=== PATIENT | female | born 1985 | race Caucasian/White ===

== ENCOUNTER 2020-04-24 18:29 | Emergency (ER) | payer SELFPAY ==
[2020-04-24] MEDS ORDERED: cefTRIAXone\\ROCEPHIN 500 MG VIAL ONE (19:52)
[2020-04-24] MEDS ORDERED: Dexamethasone 4 mg/ml Vial ONE (19:52)
[2020-04-24] MEDS ORDERED: Ketorolac Tromethamine 30 MG/ML VIAL ONE (19:52)
[2020-04-24] MEDS ORDERED: Lidocaine 1% PF 5 ML VIAL ONE (19:54)
[2020-04-25 08:43] LABS: SARS-CoV-2 MS2 Positive; SARS-CoV-2 N Gene Negative; SARS-CoV-2 S Gene Negative; SARS-CoV-2 by NAA Not Detected (NotDetected); SARS-CoV-2 orf1ab Negative
== END 2020-04-24 20:22 | disposition home or self-care (01) ==
LOC: ERS 18:29
DX: J02.9 Acute pharyngitis, unspecified (principal); L03.211 Cellulitis of face; R53.83 Other fatigue; F17.210 Nicotine dependence, cigarettes, uncomplicated; Z85.41 Personal history of malignant neoplasm of cervix uteri
CPT/HCPCS: 87635; 96372; 99283; J0696; J1100; J1885; U0003

== ENCOUNTER 2021-02-03 18:48 | Emergency (ER) | payer SELFPAY ==
[2021-02-04 18:41] LABS: SARS-CoV-2 PCR by NAA DETECTED (NotDetected)
== END 2021-02-03 21:45 | disposition home or self-care (01) ==
LOC: ERS 18:48
DX: U07.1 COVID-19 (principal); F17.210 Nicotine dependence, cigarettes, uncomplicated
CPT/HCPCS: 99283; U0003; U0005

== ENCOUNTER 2022-03-02 03:52 | Emergency (ER) | payer SELFPAY ==
[2022-03-02] MEDS ORDERED: Ondansetron PF 4 MG/2 ML Vial ONE (06:46)
[2022-03-02] MEDS ORDERED: Acetaminophen 500 MG TAB ONE (06:46)
[2022-03-02] MEDS ORDERED: Ketorolac Tromethamine 30 MG/ML VIAL ONE (06:46)
[2022-03-02 07:06] LABS: #Basophils 0.1 thou/uL (0.0-0.2); #Eosinphils 0.4 thou/uL (0.0-0.7); #Lymphocytes 3.5 thou/uL (1.20-3.40); #Monocytes 0.5 thou/uL (0.11-0.59); %Basophils 1.3 % (0.0-1.0); %Eosinophils 4.8 % (0.0-10.0); %Lymphocytes 47.4 % (21.0-51.0); %Monocytes 6.7 % (0.0-10.0); %Neutrophils 39.9 % (42.0-75.0); Hemoglobin 14.5 g/dL (12.0-16.0); Mean Corpuscular Hemoglobin 32.3 pg (27.0-31.0); Mean Corpuscular Volume 97.9 fL (78.0-98.0); Mean Platelet Volume 7.6 fL (7.4-10.4); Platelet Count 218 thou/uL (130-400); RBC Distribution Width 12.8 % (11.5-14.5); White Blood Cell (WBC) Count 7.4 thou/uL (4.8-10.8)
[2022-03-02 07:26] LABS: ALT (SGPT) 10 U/L (8-55); AST (SGOT) 10 U/L (5-34); Alkaline Phosphatase 52 U/L (40-110); Anion Gap 9 mmol/L (10-20); BUN (Urea Nitrogen) 10 mg/dL (7.0-18.7); Bilirubin, Total 0.5 mg/dL (0.2-1.2); Calc. Creatinine Clearance 0 mL/min (70-130); Calcium 9.3 mg/dL (7.8-10.44); Carbon Dioxide 24 mmol/L (22-29); Chloride 108 mmol/L (98-107); Estimated GFR 92; Globulin 3.1 g/dL (2.4-3.5); Glucose 90 mg/dL (70-105); Potassium 3.9 mmol/L (3.5-5.1); Protein, Total 7.1 g/dL (6.0-8.3); Sodium 137 mmol/L (136-145)
[2022-03-02] MEDS ORDERED: Iopamidol-370 76% 500 ML 1 ML ONE (09:28)
== END 2022-03-02 08:30 | disposition home or self-care (01) ==
LOC: ERS 03:52
DX: L03.211 Cellulitis of face (principal); K08.89 Other specified disorders of teeth and supporting structures; F17.210 Nicotine dependence, cigarettes, uncomplicated
CPT/HCPCS: 70487; 80053; 84702; 85025; 96374; 96375; J1885; J2405; Q9967

== ENCOUNTER 2022-09-14 19:00 | Emergency (ER) | payer SELFPAY | END 2022-09-14 19:25 | disposition left against medical advice (07) | LOC: ERS 19:00 | DX: Z53.21 Procedure and treatment not carried out due to patient leaving prior to being seen by health care provider (principal) ==

== ENCOUNTER 2023-01-13 23:50 | Emergency (ER) | payer SELFPAY ==
[2023-01-14] MEDS ORDERED: Metoclopramide HCl 10 MG/2 ML VIAL ONE (01:17)
[2023-01-14] MEDS ORDERED: diphenhydrAMINE 50 MG/ML VIAL ONE (01:17)
[2023-01-14] MEDS ORDERED: Ketorolac Tromethamine 30 MG/ML VIAL ONE (01:17)
== END 2023-01-14 02:14 | disposition home or self-care (01) ==
LOC: ERS 23:50
DX: G43.909 Migraine, unspecified, not intractable, without status migrainosus (principal); F17.210 Nicotine dependence, cigarettes, uncomplicated
CPT/HCPCS: 96365; 96375; J1200; J1885; J2765

== ENCOUNTER 2023-01-28 22:47 | Emergency (ER) | payer SELFPAY | END 2023-01-28 23:43 | disposition home or self-care (01) | LOC: ERS 22:47 | DX: H66.91 Otitis media, unspecified, right ear (principal); H73.91 Unspecified disorder of tympanic membrane, right ear; F17.210 Nicotine dependence, cigarettes, uncomplicated | CPT/HCPCS: 99282 ==

== ENCOUNTER 2024-04-01 08:15 | Outpatient (CLI) | payer OTHER | END 2024-04-01 08:16 | disposition home or self-care (01) | LOC: BICMAMMO 08:15 | DX: N61.1 Abscess of the breast and nipple (principal) | CPT/HCPCS: 77066; G0279 ==